=== PATIENT | male | born 2000 | race Caucasian/White ===

== ENCOUNTER 2020-11-29 14:43 | Emergency (ER) | payer BC, OTHER | END 2020-11-29 17:25 | disposition home or self-care (01) | LOC: ER1 14:43 | DX: R51.9 Headache, unspecified (principal); R11.2 Nausea with vomiting, unspecified; F17.210 Nicotine dependence, cigarettes, uncomplicated; Z20.828 Contact with and (suspected) exposure to other viral communicable diseases | CPT/HCPCS: 99284; U0003 ==